=== PATIENT | female | born 1955 | race Caucasian/White ===

== ENCOUNTER 2017-12-18 15:15 | Outpatient (CLI) | payer BC, OTHER ==
--- NOTE | 2017-12-18 15:42 | XRAY Report ---
Procedure Date: 12/18/2017 Accession Number: [id number] / [id number] Procedure: XR - Hand 3 View BILAT CPT Code: FULL RESULT: EXAM: Hand 3 View BILAT DATE: 12/18/2017 3:31 PM CLINICAL HISTORY: BILAT THUMB PAIN COMPARISON: None. TECHNIQUE: 3 views each hand. FINDINGS: RIGHT: Bones: Normal. No fractures or bone lesions. Joints: Mild degenerative changes of the first carpometacarpal joint with mild subluxation. Soft Tissues: Normal. No soft tissue swelling. LEFT: Bones: Normal. No fractures or bone lesions. Joints: Mild to moderate degenerative changes of the first carpometacarpal joint with mild subluxation. Soft Tissues: Normal. No soft tissue swelling. IMPRESSION: Degenerative changes of the first carpometacarpal joints bilaterally. RADIA
== END 2017-12-18 15:16 | disposition home or self-care (01) ==
LOC: DI 15:15
PROVIDERS: ATTEND Internal Medicine
DX: M18.0 Bilateral primary osteoarthritis of first carpometacarpal joints (principal)

== ENCOUNTER 2021-12-05 13:34 | Outpatient (CLI) | payer MEDICARE, OTHER ==
--- NOTE | 2021-12-10 10:21 | Mammography Report ---
BILATERAL DIGITAL SCREENING MAMMOGRAM 3D/2D WITH AUGMENTATION: 12/05/2021 CLINICAL: Routine screening. Comparison is made to exams dated: 07/25/2017 mammogram and 09/15/2015 mammogram - [facility]. The tissue of both breasts is heterogeneously dense. This may lower the sensitivity of mammogr aphy. Bilateral breast implants are stable. No significant masses, calcifications, or other findings are seen in either breast. There has been no significant interval change. IMPRESSION: NEGATIVE There is no mammographic evidence of malignancy. A 1 year screening mammogram is recommended. Based on the Tyrer Cuzick model (a risk assessment model) the patients lifetime risk is 7.0% and her 10 year risk is 4.0%. According to the ACR, ACS, and NCCN guidelines, an annual breast MRI exam dai g with mammogram is recommended if the patients lifetime risk is 20% or greater. This exam was interpreted at Station ID: [id number]. NOTE: For mammograms, a report in lay terms will be sent to the patient. Approximately 15% of breast malignancies will not be visualized mammographically. In the management of a palpable breast mass, a negative mammogram must not discourage biopsy of a clinically suspicious lesion. Electronically Signed By: Jason gregory/germán:12/10/2021 08:22:53 ACR BI-RADS Category 1: Negative 3341F PARENCHYMAL PATTERN: (D) - The breast(s) demonstrate(s) heterogeneously dense fibroglandular nilam muller. BI-RADS CATEGORY: (1) - 1 RECOMMENDATION: (ANNUAL) - Recommend routine annual screening mammography. [id number] 1 year screening LATERALITY: (B)
== END 2021-12-05 13:35 | disposition home or self-care (01) ==
LOC: DI 13:34
PROVIDERS: ATTEND Family Medicine
DX: Z12.31 Encounter for screening mammogram for malignant neoplasm of breast (principal); Z98.82 Breast implant status

== ENCOUNTER 2021-12-05 13:37 | Outpatient (CLI) | payer MEDICARE, OTHER ==
--- NOTE | 2021-12-05 16:23 | DEXA Report ---
PROCEDURE: Dexa Spine and/or Hip INDICATIONS: POSTMENOPAUSAL TECHNIQUE: Dual energy x-ray absorptiometry (DXA) was performed on a [employer] System. Regions measur ed are the AP Spine, femoral neck, and if needed forearm. COMPARISON: None. FINDINGS: Lumbar Spine: Bone Mineral Density 1.3 g/cm/cm,T score 1.2, normal bone density Left Hip: Bone Mineral Density 0.9 g/cm/cm,T score -0.8; normal bone density Impression: Normal lumbar spine and left hip bone density. Patients with diagnosis of osteoporosis or osteopenia should have regular bone mineral density assess ment. For those eligible for Medicare, routine testing is allowed once every 2 years. Testing frequ ency can be increased for patients who have rapidly progressing disease or for those who are receivin g medical therapy to restore bone mass. Reviewed by: Raisa Grey MD on 12/05/2021 4:22 PM PDT Approved by: Raisa Grey MD on 12/05/2021 4:22 PM PDT Station ID: [id number]
== END 2021-12-05 13:38 | disposition home or self-care (01) ==
LOC: DI 13:37
PROVIDERS: ATTEND Family Medicine
DX: M85.80 Other specified disorders of bone density and structure, unspecified site (principal); Z13.820 Encounter for screening for osteoporosis; Z78.0 Asymptomatic menopausal state

== ENCOUNTER 2021-12-05 14:26 | Outpatient (CLI) | payer MEDICARE, OTHER ==
--- NOTE | 2021-12-05 16:56 | XRAY Report ---
PROCEDURE: Wrist 4 View BILAT INDICATIONS: BILATERAL CMC ARTHRITIS TECHNIQUE: 3 views of each wrist were acquired. COMPARISON: Bilateral hand radiographs 12/18/2017 FINDINGS: Bones: No acute fractures or dislocations. No suspicious bony lesions. Moderate joint space narrow ing is seen at the first carpometacarpal joints bilaterally, mildly worse on the left. Mild bilateral triscaphe the osteoporosis. Osseous erosion. Soft tissues: No suspicious soft tissue calcifications. IMPRESSION: Moderate first carpometacarpal joint osteoarthrosis bilaterally, slightly worse on the left, which lemon s mildly progressed when compared to the radiographs from 12/28/2017. Reviewed by: Jason Stephens MD on 12/05/2021 4:55 PM PDT Approved by: Jason Stephens MD on 12/05/2021 4:55 PM PDT Station ID: [id number]
--- NOTE | 2021-12-05 17:10 | XRAY Report ---
PROCEDURE: Hand 3 View BILAT INDICATIONS: CMC ARTHRITIS TECHNIQUE: 3 views of each hand acquired. COMPARISON: Bilateral hand radiographs 12/18/2017 FINDINGS: Bones: No acute fractures or dislocations. No suspicious bony lesions. There is moderate narrowing of the carpal metacarpal joints bilaterally that is slightly worse on the left. Mild triscaphe arthr osis bilaterally. Interphalangeal joint spaces are relatively maintained. Soft tissues: No suspicious soft tissue calcifications. IMPRESSION: Moderate bilateral first carpometacarpal joint osteoarthrosis, slightly worse on the left. Findings h ave mildly progressed when compared to the exam from 12/18/2017. Reviewed by: Jason Stephens MD on 12/05/2021 5:08 PM PDT Approved by: Jason Stephens MD on 12/05/2021 5:08 PM PDT Station ID: [id number]
== END 2021-12-05 14:27 | disposition home or self-care (01) ==
LOC: DI 14:26
PROVIDERS: ATTEND Family Medicine
DX: M18.0 Bilateral primary osteoarthritis of first carpometacarpal joints (principal); M85.80 Other specified disorders of bone density and structure, unspecified site; Z13.820 Encounter for screening for osteoporosis; Z78.0 Asymptomatic menopausal state

== ENCOUNTER 2023-07-23 13:22 | Outpatient (CLI) | payer MEDICARE, OTHER | END 2023-07-23 13:23 | disposition home or self-care (01) | LOC: RT 13:22 | PROVIDERS: ATTEND Student in an Organized Health Care Education/Training Program | DX: J45.909 Unspecified asthma, uncomplicated (principal) | CPT/HCPCS: 94060; 94727; 94729 ==

== ENCOUNTER 2023-09-05 08:00 | Outpatient (CLI) | payer MEDICARE, OTHER | END 2023-09-05 23:59 | disposition home or self-care (01) | LOC: LAB.N 08:00 | PROVIDERS: ATTEND Nurse Practitioner | DX: R30.0 Dysuria (principal) | CPT/HCPCS: 87077; 87086; 87181 ==

== ENCOUNTER 2023-09-19 08:00 | Outpatient (CLI) | payer MEDICARE, OTHER | END 2023-09-19 23:59 | disposition home or self-care (01) | LOC: LAB 08:00 | PROVIDERS: ATTEND Emergency Medicine | DX: N30.00 Acute cystitis without hematuria (principal) | CPT/HCPCS: 87077; 87086; 87181 ==

== ENCOUNTER 2023-09-26 12:19 | Outpatient (CLI) | payer MEDICARE, OTHER | END 2023-09-26 12:20 | disposition home or self-care (01) | LOC: LAB 12:19 | PROVIDERS: ATTEND Emergency Medicine | DX: N30.00 Acute cystitis without hematuria (principal) | CPT/HCPCS: 87077; 87086; 87181 ==

== ENCOUNTER 2023-10-08 08:00 | Outpatient (CLI) | payer MEDICARE, OTHER | END 2023-10-08 23:59 | disposition home or self-care (01) | LOC: LAB 08:00 | PROVIDERS: ATTEND Urology | DX: R30.0 Dysuria (principal) | CPT/HCPCS: 87086 ==

== ENCOUNTER 2023-10-25 11:12 | Outpatient (CLI) | payer MEDICARE, OTHER ==
--- NOTE | 2023-10-26 06:20 | Ultrasound Report ---
PROCEDURE: Renal (Retroperitoneal) INDICATIONS: RECURRENT CYSTITIS TECHNIQUE: Real-time scanning was performed of the retroperitoneal organs, with image documentation. COMPARISON: None. FINDINGS: The right kidney measures 9 cm. The left kidney measures 9 cm. Mild cortical thinning measuring 0.6 c m on the right and 0.9 cm on the left. There is mild renal pelviectasis on the right. Left superior medial calculus measures 1.4 x 0.9 cm. Post void residual in the bladder is 17 cc. Both ureteral jets were visualized. IMPRESSION: Left superior renal calculus measures up to 1.4 x 0.9 cm. There is mild right renal pelviectasis. Post void residual 17 cc. Reviewed by: Iker Mccain MD on 10/26/2023 6:19 AM PDT Approved by: Iker Mccain MD on 10/26/2023 6:19 AM PDT Station ID: [id number]
== END 2023-10-25 11:13 | disposition home or self-care (01) ==
LOC: DI 11:12
PROVIDERS: ATTEND Urology
DX: N20.0 Calculus of kidney (principal); N28.89 Other specified disorders of kidney and ureter

== ENCOUNTER 2023-12-01 07:37 | Outpatient (CLI) | payer MEDICARE, OTHER ==
--- NOTE | 2023-12-01 13:11 | XRAY Report ---
PROCEDURE: Cervical Spine 2-3V INDICATIONS: HISTORY OF DEGENERATIVE SPINAL CHANGES TECHNIQUE: 3 view(s) of the cervical spine were acquired. COMPARISON: None. FINDINGS: Bones: No fractures or dislocations to the T1 level. The lateral masses of C1 appear intact on the odontoid view. No suspicious bony lesions. Grade 1 anterolisthesis of C3 on C4 and C4 on C5, presum ably due to facet arthrosis. Moderate disc height loss at C5-6, C6-7. Mild disc height loss at remain ing levels. Diffuse facet arthrosis, most prominent at the right side of C4-5, bilateral C5-6 and C6- 7. Soft tissues: No prevertebral soft tissue swelling. IMPRESSION: Mild to moderate, multilevel degenerative disc disease and diffuse facet arthrosis. Reviewed by: Reno Lopez MD on 12/01/2023 1:10 PM PDT Approved by: Reno Lopez MD on 12/01/2023 1:10 PM PDT Station ID: [id number]
--- NOTE | 2023-12-01 13:11 | XRAY Report ---
PROCEDURE: Thoracic Spine 2V INDICATIONS: HISTORY OF DEGENERATIVE SPINAL CHANGES TECHNIQUE: 2 views of the thoracic spine were acquired. COMPARISON: None. FINDINGS: Bones: No fractures or dislocations. No suspicious bony lesions. 12 pairs of ribs are noted, and a ppear intact where visualized. Soft tissues: No paravertebral stripe thickening. IMPRESSION: No acute bony abnormality. No significant degenerative change. Reviewed by: Reno Lopez MD on 12/01/2023 1:10 PM PDT Approved by: Reno Lopez MD on 12/01/2023 1:10 PM PDT Station ID: [id number]
--- NOTE | 2023-12-01 13:12 | XRAY Report ---
PROCEDURE: Lumbar Spine 2-3V INDICATIONS: HISTORY OF DEGENERATIVE SPINAL CHANGES TECHNIQUE: 3 views of the lumbar spine were acquired. COMPARISON: None. FINDINGS: Surgical change: None. Bones: 5 [id number] vertebrae are present. Grade 1 anterolisthesis of L4 on L5. No vertebral jessica dy compression fractures. No suspicious bony lesions. Moderate disc height loss at L4-5. Mild disc h eight loss at remaining levels. Facet arthrosis of L3-S1. Soft tissues: Overlying bowel gas pattern is normal. No suspicious soft tissue calcifications. IMPRESSION: Mild to moderate, multilevel degenerative disc disease and lower lumbar facet arthrosis. Grade 1 anterolisthesis of L4 on L5 due to facet arthrosis. Reviewed by: Reno Lopez MD on 12/01/2023 1:11 PM PDT Approved by: Reno Lopez MD on 12/01/2023 1:11 PM PDT Station ID: [id number]
== END 2023-12-01 07:38 | disposition home or self-care (01) ==
LOC: DI.N 07:37
DX: M47.812 Spondylosis without myelopathy or radiculopathy, cervical region (principal); M50.31 Other cervical disc degeneration, high cervical region; M47.816 Spondylosis without myelopathy or radiculopathy, lumbar region; M47.817 Spondylosis without myelopathy or radiculopathy, lumbosacral region; M51.36 Other intervertebral disc degeneration, lumbar region; M51.37 Other intervertebral disc degeneration, lumbosacral region; M43.16 Spondylolisthesis, lumbar region